=== PATIENT | female | born 1960 | race Caucasian/White ===

== ENCOUNTER → 2020-12-06 | Outpatient (CLI) | payer OTHER ==
--- NOTE | 2020-12-06 14:06 | XR ---
EXAMINATION TYPE: XR Hip Complete RT DATE OF EXAM: 12/06/2020 COMPARISON: NONE HISTORY: Pain TECHNIQUE: 2 views submitted FINDINGS: There is no evidence of erosive change or acute fracture. Mild concentric narrowing of the hip joint. IMPRESSION: 1. Mild arthropathy
== END | disposition home or self-care (01) ==
LOC: RADXRMAIN 13:43
PROVIDERS: ATTEND Family Medicine
DX: M12.9 Arthropathy, unspecified (principal)
CPT/HCPCS: 73502